=== PATIENT | male | born 1985 | race Caucasian/White ===

== ENCOUNTER 2018-04-09 20:07 | Emergency (ER) | payer OTHER ==
[~2018-04-09] VITALS: Ht 175.3 cm; Wt 104.5 kg
[2018-04-09] MEDS ORDERED: ACETAMINOPHEN 500 MG TABLET PO ONE (21:00)
[2018-04-09 21:11] LABS: RAPID GROUP A STREP NEGATIVE (NEGATIVE)
[2018-04-09 21:24] LABS: INFLUENZA TYPE A NEGATIVE FOR TYPE A (NEGATIVE); INFLUENZA TYPE B NEGATIVE FOR TYPE B (NEGATIVE)
[2018-04-09] MEDS ORDERED: DEXAMETHASONE SOD PHOS 4 MG/ML 5 ML VIAL IM ONE (22:15)
[2018-04-09] MEDS ORDERED: PENICILLIN G BENZATHINE LA 1,200,000 UNITS/2 ML SYRINGE IM ONE (22:30)
[2018-04-09 22:45] VITALS: BP 129/90
== END 2018-04-09 23:01 | disposition home or self-care (01) ==
LOC: EMS 20:08
DX: J03.90 Acute tonsillitis, unspecified (principal); F17.210 Nicotine dependence, cigarettes, uncomplicated
CPT/HCPCS: 87430; 87804; 96372; 99283; J0561; J1100

== ENCOUNTER 2020-05-13 16:14 | Emergency (ER) | payer OTHER ==
[~2020-05-13] VITALS: Ht 175.3 cm; Wt 113.6 kg
[2020-05-13] MEDS ORDERED: KETOROLAC TROMETHAMINE 30 MG/ML VIAL IVP ONE (20:45)
[2020-05-13] MEDS ORDERED: SODIUM CHLORIDE 0.9% 100 ML ONE (20:53)
[2020-05-13] MEDS ORDERED: IOVERSOL 350 MG/ML 100 ML VIAL ONE (20:53)
[2020-05-13 21:15] LABS: BASOPHILS % (AUTO) 0.5 % (0.0-2.0); EOSINOPHILS % (AUTO) 0.4 % (1.0-6.0); HEMATOCRIT 45.2 % (41-53); HEMOGLOBIN 15.4 g/dL (13.5-17.5); LYMPHOCYTES # (AUTO) 1.8 K/uL (1.0-4.8); LYMPHOCYTES % (AUTO) 19.8 % (22.0-44.0); MEAN CORPUSCULAR HEMOGLOBIN 28.5 pg (26.0-34.0); MEAN CORPUSCULAR HGB CONC 34.1 G/dL (31.0-37.0); MEAN CORPUSCULAR VOLUME 84 fL (80-100); MONOCYTES # (AUTO) 1.1 K/uL (0.1-1.0); MONOCYTES % (AUTO) 12.7 % (2.0-9.0); NEUTROPHILS % (AUTO) 66.6 % (40.0-70.0); PLATELET COUNT (AUTO) 291 K/uL (150-450); RED CELL DISTRIBUTION WIDTH 13.7 % (11.5-14.5)
[2020-05-13 21:21] LABS: ANION GAP 8 mmol/L (8-16); CALCIUM, TOTAL 9.3 mg/dL (8.8-10.5); CARBON DIOXIDE 29 mmol/L (22-29); CHLORIDE 101 mmol/L (98-107); CREATININE 0.82 mg/dL (0.60-1.30); GLOMERULAR FILTR. RATE CALC > 60 mL/min (>60); GLUCOSE,RANDOM 92 mg/dL (70-110); POTASSIUM 4.4 mmol/L (3.5-5.1); SODIUM SERUM 138 mmol/L (136-145); UREA NITROGEN, BLOOD 11 mg/dL (7-18)
[2020-05-14] MEDS ORDERED: METOCLOPRAMIDE HCL 5 MG/ML 2 ML VIAL IVP ONE (00:15)
[2020-05-14] MEDS ORDERED: DEXAMETHASONE SOD PHOS 4 MG/ML 5 ML VIAL IVP ONE (00:15)
[2020-05-14] MEDS ORDERED: KETOROLAC TROMETHAMINE 30 MG/ML VIAL IVP ONE (00:15)
[2020-05-14] MEDS ORDERED: ACETAMINOPHEN 500 MG TABLET PO ONE (00:15)
[2020-05-14] MEDS ORDERED: DiphenhydrAMINE HCL 50 MG/ML VIAL IVP ONE (00:15)
[2020-05-14 00:30] VITALS: BP 116/78
== END 2020-05-14 02:49 | disposition home or self-care (01) ==
LOC: EMS 16:19
DX: R51.9 Headache, unspecified (principal); R42 Dizziness and giddiness; F17.210 Nicotine dependence, cigarettes, uncomplicated
CPT/HCPCS: 36415; 70450; 70496; 80048; 85025; 96374; 96375; 99285; J1100; J1200; J1885 ×2; J2765; J7050; Q9967